=== PATIENT | female | born 1950 | race Caucasian/White ===

== ENCOUNTER 2017-05-21 21:29 | Emergency (ER) | payer OTHER ==
[2017-05-21 21:48] VITALS: BMI 32.0
[2017-05-21 22:07] LABS: URINE APPEARANCE CLEAR; URINE BILIRUBIN NEGATIVE (NEGATIVE); URINE BLOOD NEGATIVE (NEGATIVE); URINE COLOR YELLOW; URINE GLUCOSE (UA) NEGATIVE (NEGATIVE); URINE KETONE NEGATIVE (NEGATIVE); URINE NITRITE NEGATIVE (NEGATIVE); URINE PROTEIN NEGATIVE (NEGATIVE); URINE UROBILINOGEN NEGATIVE E.U./dl (0.2-1.0)
[2017-05-21 22:10] LABS: URINE LEUK ESTERASE TRACE (NEGATIVE)
[2017-05-21 22:11] LABS: URINE MUCUS RARE; URINE RBC 3 /hpf (0-3); URINE WBC 1 /hpf (3-5)
[2017-05-21] MEDS ORDERED: SODIUM CHLORIDE 1,000 ML IV STA (22:35)
[2017-05-21] MEDS ORDERED: ACETAMINOPHEN 1000 MG/100 ML VIAL (NON FORMULARY) IVPB ONE (22:35)
[2017-05-21] MEDS ORDERED: ACETAMINOPHEN INJECTION 100 ML IVPB ONE (22:42)
[2017-05-21 23:20] LABS: BASOPHIL 0.4 % (0-2.0); EOSINOPHIL 0.2 % (0-4.5); MCH 28.1 pg (25.7-33.7); MCHC 32.6 g/dl (32.0-36.0); MEAN CELL VOLUME 86.2 fl (80-96); MEAN PLT VOLUME 9.1 fl (7.5-11.1); NEUTROPHILS 83.2 % (42.8-82.8); PLATELET COUNT 242 K/MM3 (134-434); RDW 13.7 % (11.6-15.6); WHITE BLOOD COUNT 15.3 K/mm3 (4.0-10.0)
[2017-05-21 23:43] LABS: INR 1.28 (0.82-1.09); PROTHROMBIN TIME (PATIENT) 14.2 SEC (9.98-11.88)
[2017-05-21 23:44] LABS: ALBUMIN 3.6 g/dl (3.4-5.0); ANION GAP 9 (8-16); BILIRUBIN,TOTAL 0.4 mg/dL (0.2-1.0); C-REACTIVE PROTEIN 0.9 MG/DL (0.00-0.3); CALCIUM 8.7 mg/dL (8.5-10.1); CO2 29 mmol/L (21-32); CREATININE 0.8 mg/dL (0.55-1.02); GLUCOSE,RANDOM 145 mg/dL (74-106); SGOT/AST 25 U/L (15-37); SGPT/ALT 33 U/L (12-78)
[2017-05-21 23:45] LABS: ACTIVATED PTT 33.8 SECONDS (26.9-34.4)
[2017-05-21 23:46] LABS: ALK PHOS 78 U/L (45-117)
--- NOTE | 2017-05-22 | PDOC ---
History of Present Illness - General Chief Complaint: SIRS, Suspected/Possible Stated Complaint: FOLLOW UP Time Seen by Provider: 05/21/17 21:41 History Source: Patient, Family Exam Limitations: No Limitations - History of Present Illness Initial Comments: 05/22/17 00:22 67yo Female patient w/ PmHx: DM, Stent x1, TIA (2012) presents to ED c/o fever ( 101.6), chills, short of breath, bilateral flank pain, neck pain s/p upper endoscopy. Patient states routine exam r/t GERD with findings of polyp and hiatal hernia. 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 She recently had Echo and Stress testing done but does not remember results. She states being started on Ranexa 500mg recently. Timing/Duration: 4-6 hours Severity: moderate Modifying Factors: worse with: cold therapy, eating, immobilization, medication , movement, rest, other Associated Symptoms: reports: fever/chills, shortness of breath Aspirin Received prior to arrival: No: no aspirin today, unknown, 81 mg x 1, 81 mg x 2, 81 mg x 3, 81 mg x 4, 325 mg x 1, provided at home, provided by EMS, provided by [facility] Contraindications(Core Measure): No: Allergy, Other, Active Blding w/i 24 hrs., Plavix, Receiving Warfarin Past History - Travel Traveled outside of the country in the last 30 days: No Close contact w/someone who was outside of country & ill: No - Past Medical History Allergies/Adverse Reactions: Allergies Allergy/AdvReac Type Severity Reaction Status Date / Time Iodinated Contrast Media - Allergy Unknown Verified 01/13/14 13:02 Oral and [Iodinated Contrast Media - IV Dye] Home Medications: Ambulatory Orders Amlodipine Besylate [Norvasc -] 5 mg PO DAILY 05/21/17 Aspirin [ASA -] 81 mg PO DAILY 05/21/17 Atorvastatin Ca [Lipitor] 20 mg PO HS 05/21/17 Calcium Carbonate/Vitamin D3 [Calcium 250+D Tablet] 1 each PO DAILY 05/21/17 Clopidogrel Bisulfate [Plavix -] 75 mg PO DAILY 05/21/17 Hydrochlorothiazide [Hctz -] 50 mg PO DAILY 05/21/17 Metformin HCl [Glucophage -] 500 mg PO BID 05/21/17 Pantoprazole Sodium [Protonix] 40 mg PO BID 05/21/17 Ranolazine [Ranexa -] 500 mg PO BID 05/21/17 Valacyclovir HCl [Valtrex -] 500 mg PO ASDIR 05/21/17 Amoxicillin/Potassium Clav [Augmentin 875-125 Tablet] 1 each PO BID #28 tablet 05/22/17 CVA: Yes (tia) GI Disorders: Yes (GERD) HTN: Yes Hypercholesterolemia: Yes (also lyme's disease) Suicide Attempt (Hx): No - Surgical History Abdominal Surgery: Yes (tummy tuck) Cardiac Surgery: Yes (stent) Orthopedic Surgery: Yes (R. foot bunyonectomy) - Psycho/Social/Smoking Cessation Hx Anxiety: No Suicidal Ideation: No Smoking Status: No Smoking History: Never smoked Have you smoked in the past 12 months: No Number of Cigarettes Smoked Daily: 0 Hx Alcohol Use: Yes (Occasional) Drug/Substance Use Hx: Yes Substance Use Type: Alcohol Hx Substance Use Treatment: No Review of Systems - Review of Systems Able to Perform ROS?: Yes Is the patient limited [place]ian proficient: No Constitutional: Yes: Chills, Fever, Weakness Respiratory: Yes: Shortness of Breath Cardiac (ROS): No: Chest Pain, Palpitations ABD/GI: No: Abdominal Distended, Diarrhea, Nausea, Poor Appetite, Poor Fluid Intake, Vomiting, Abdominal cramping : No: Burning, Dysuria Musculoskeletal: No: Back Pain Integumentary: No: Dryness, Erythema, Rash, Sweating All Other Systems: Reviewed and Negative *Physical Exam - Vital Signs Last Vital Signs Temp Pulse Resp BP Pulse Ox 99.9 F H 108 H 20 142/77 96 05/21/17 21:46 05/21/17 21:46 05/21/17 21:46 05/21/17 21:46 05/21/17 21:46 - Physical Exam General Appearance: Yes: Nourished, Appropriately Dressed. No: Apparent Distress, Mild Distress, Moderate Distress, Severe Distress HEENT: positive: EOMI, CHIRAG, Normal ENT Inspection, Normal Voice, Symmetrical, TMs Normal, Pharynx Normal. negative: Pharyngeal Erythema, Tonsillar Exudate, Tonsillar Erythema, Sinus Tenderness, TM Bulging, TM Dull, TM Erythema Neck: positive: Trachea midline, Supple. negative: Stridor, Lymphadenopathy (R) , Lymphadenopathy (L) Respiratory/Chest: positive: Lungs Clear, Normal Breath Sounds. negative: Chest Tender, Respiratory Distress, Accessory Muscle Use, Labored Respiration, Rapid RR, Rhonchi, Stridor, Wheezing Cardiovascular: positive: Regular Rhythm, Regular Rate Gastrointestinal/Abdominal: positive: Normal Bowel Sounds, Soft. negative: Distended, Guarding, Rebound, Tenderness Musculoskeletal: positive: Normal Inspection. negative: CVA Tenderness Extremity: positive: Normal Capillary Refill, Normal Inspection, Normal Range of Motion. negative: Pedal Edema, Swelling, Calf Tenderness, Erythema, Inflammation Integumentary: positive: Normal Color, Dry, Warm. negative: Erythema, Swelling Neurologic: positive: pyrometer operator II-XII NML intact, Fully Oriented, Alert, Normal Mood/ Affect, Normal Response, Motor Strength 03/30 ED Treatment Course - LABORATORY CBC & Chemistry Diagram: 05/21/17 23:00 05/21/17 23:00 - ADDITIONAL ORDERS Additional order review: Laboratory Results 05/21/17 05/21/17 05/21/17 23:00 23:00 23:00 INR Cancelled 1.28 H PTT (Actin FS) 33.8 D-Dimer 207 Sodium 138 Potassium 3.5 Chloride 100 Carbon Dioxide 29 Anion Gap 9 BUN 19 H D Creatinine 0.8 Creat Clearance w eGFR > 60 Random Glucose 145 H Calcium 8.7 Total Bilirubin 0.4 AST 25 D ALT 33 D Alkaline Phosphatase 78 C-Reactive Protein 0.9 H B-Natriuretic Peptide 111.23 Total Protein 7.0 Albumin 3.6 Urine Color Urine Appearance Urine pH Urine Protein Urine Glucose (UA) Urine Ketones Urine Blood Urine Nitrite Urine Bilirubin Urine Urobilinogen Ur Leukocyte Esterase Urine RBC Urine WBC Ur Epithelial Cells Urine Mucus 05/21/17 21:53 INR PTT (Actin FS) D-Dimer Sodium Potassium Chloride Carbon Dioxide Anion Gap BUN Creatinine Creat Clearance w eGFR Random Glucose Calcium Total Bilirubin AST ALT Alkaline Phosphatase C-Reactive Protein B-Natriuretic Peptide Total Protein Albumin Urine Color Yellow Urine Appearance Clear Urine pH 6.0 Urine Protein Negative Urine Glucose (UA) Negative Urine Ketones Negative Urine Blood Negative Urine Nitrite Negative Urine Bilirubin Negative Urine Urobilinogen Negative Ur Leukocyte Esterase Trace H D Urine RBC 3 Urine WBC 1 Ur Epithelial Cells Rare Urine Mucus Rare 05/21/17 23:00 RBC 4.33 MCV 86.2 MCHC 32.6 RDW 13.7 MPV 9.1 Neutrophils % 83.2 H D Lymphocytes % 11.2 D Monocytes % 5.0 Eosinophils % 0.2 D Basophils % 0.4 - Medications Given in the ED: ED Medications Discontinued Medications Generic Name Dose Route Start Last Admin Trade Name Emanuel PRN Reason Stop Dose Admin Acetaminophen 1,000 mg 05/21/17 22:35 05/21/17 23:21 Ofirmev Injection - IVPB 05/21/17 22:36 1,000 mg ONCE ONE Administration Sodium Chloride 1,000 mls @ 1,000 mls/hr 05/21/17 22:35 05/21/17 23:20 Normal Saline - IV 05/21/17 23:34 1,000 mls/hr ASDIR STA Administration *DC/Admit/Observation/Transfer Diagnosis at time of Disposition: Pneumonia Qualifiers: Pneumonia type: due to unspecified organism Laterality: left Lung location: lower lobe of lung Qualified Code(s): J18.1 - Lobar pneumonia, unspecified organism - Discharge Dispostion Disposition: HOME Condition at time of disposition: Improved Admit: No - Prescriptions Prescriptions: Amoxicillin/Potassium Clav [Augmentin 875-125 Tablet] 1 each PO BID #28 tablet - Referrals Referrals: Mai Chan MD [Primary Care Provider] - - Patient Instructions Printed Discharge Instructions: DI for Pneumonia -- Adult Additional Instructions: Follow up with your primary care provider this week for further evaluation. Take medications as prescribed. Return if symptoms worsen, or any concerns for further evaluation. Print Language: CANADIAN
[2017-05-22] MEDS ORDERED: SODIUM CHLORIDE 1,000 ML IV STA (00:43)
[2017-05-22] MEDS ORDERED: AZITHROMYCIN IVPB 500 MG in DEXTROSE 5%-WATER - 250 ML IVPB ONE (01:42)
[2017-05-22] MEDS ORDERED: CEFTRIAXONE 1 GM in DEXTROSE 5%-WATER - 50 ML IVPB ONE (01:42)
[2017-05-22] MEDS ORDERED: AZITHROMYCIN IVPB 250 ML IVPB ONE (01:51)
[2017-05-22] MEDS ORDERED: CEFTRIAXONE 50 ML ONE (01:52)
[2017-05-22 02:25] LABS: TROPONIN I < 0.02 ng/ml (0.00-0.05)
[2017-05-22 03:07] VITALS: BP 110/69; PULSE 70; TEMP 98.3
== END 2017-05-22 04:13 | disposition home or self-care (01) ==
LOC: JER 21:29
PROC: 3E0337Z Introduction of Electrolytic and Water Balance Substance into Peripheral Vein, Percutaneous Approach (ICD-10-PCS; principal; 2017-05-21)
PROC: 3E03329 Introduction of Other Anti-infective into Peripheral Vein, Percutaneous Approach (ICD-10-PCS; 2017-05-21)
PROC: 3E03329 Introduction of Other Anti-infective into Peripheral Vein, Percutaneous Approach (ICD-10-PCS; 2017-05-21)
PROC: 3E033NZ Introduction of Analgesics, Hypnotics, Sedatives into Peripheral Vein, Percutaneous Approach (ICD-10-PCS; 2017-05-21)
DX: J18.1 Lobar pneumonia, unspecified organism (principal); I25.10 Atherosclerotic heart disease of native coronary artery without angina pectoris; I10 Essential (primary) hypertension; Z95.5 Presence of coronary angioplasty implant and graft; E11.9 Type 2 diabetes mellitus without complications; Z79.84 Long term (current) use of oral hypoglycemic drugs; K21.9 Gastro-esophageal reflux disease without esophagitis; Z86.73 Personal history of transient ischemic attack (TIA), and cerebral infarction without residual deficits
CPT/HCPCS: 36415; 71020-TC; 71250-TC; 80053; 81003; 81015; 82550; 83605; 83880; 84484; 85025; 85379; 85610; 85651; 85730; 86140; 87040; 87086; 99283-25